=== PATIENT | female | born 1995 | race American Indian/Alaskan Native ===

== ENCOUNTER 2021-10-14 13:35 | Emergency (ER) | payer MEDICAID ==
[2021-10-14] MEDS ORDERED: ONDANSETRON 4 MG/2 ML INJ IV ONE (13:57)
[2021-10-14] MEDS ORDERED: fentaNYL 100 MCG/2 ML INJ IV ONE ×4 (13:57→23:40)
[2021-10-14] MEDS ORDERED: SODIUM CHLORIDE 0.9% 1000 ML 1,000 ML IV ONE ×2 (14:08→16:30)
--- NOTE | 2021-10-14 14:09 | Emergency Department Report ---
HPI - HPI HPI: Room 6 Patient is a 25-year-old female present with chief complaint pelvic pain after attempted . The patient states she went to a preferred women's health clinic today for elective . Patient states 5 minutes into the procedure she began having pain in the left pelvis. She was told by the licensed embalmer supervisor that her cervix was too far to the left. The procedure was eventually abandoned and the patient was sent to the ED by EMS. Patient states she had vaginal bleeding and has only used 1 pad that was placed at the clinic. <IMELDA MANDUJANO - Last Filed: 10/14/21 20:54> <BRYANNA REICH - Last Filed: 10/15/21 01:52> - General Chief Complaint: Abdominal Pain Time Seen by Provider: 10/14/21 13:50 ED Past Medical Hx - Past Medical History Previous Medical History?: No - Surgical History Hx Appendectomy: Yes Additional Surgical History: Craniotomy for benign tumor removal. D&C - Family History Family history: no significant - Social History Smoking Status: Never Smoker Substance Use Type: None (Denies illicit drug use), Alcohol <IMELDA MANDUJANO - Last Filed: 10/14/21 20:54> ED Review of Systems ROS: Stated complaint: ABD PAIN DURING Other details as noted in HPI Constitutional: no symptoms reported Eyes: denies: eye pain ENT: denies: throat pain Respiratory: no symptoms reported Cardiovascular: denies: chest pain Endocrine: no symptoms reported Gastrointestinal: abdominal pain Genitourinary: abnormal menses Musculoskeletal: denies: back pain Neurological: denies: headache <IMELDA MANDUJANO - Last Filed: 10/14/21 20:54> ROS: Stated complaint: ABD PAIN DURING Other details as noted in HPI <BRYANNA REICH - Last Filed: 10/15/21 01:52> Physical Exam - Physical Exam Vital Signs: Vital Signs 10/14/21 13:36 Pulse Rate 89 Blood Pressure 123/64 [Left] O2 Sat by Pulse 97 Oximetry Physical Exam: GENERAL: The patient is well-developed well-nourished female lying on stretcher appearing to be in moderate discomfort. [] HEENT: Normocephalic. Atraumatic. Extraocular motions are intact. Patient has moist mucous membranes. NECK: Supple. Trachea midline CHEST/LUNGS: Clear to auscultation. There is no respiratory distress noted. HEART/CARDIOVASCULAR: Regular. There is no tachycardia. There is no gallop rub or murmur. ABDOMEN: Abdomen is soft, with tenderness to palpation in the suprapubic and left lower quadrant. There is no abdominal distention. SKIN: There is no rash. There is no edema. There is no diaphoresis. NEURO: The patient is awake, alert, and oriented. The patient is cooperative. The patient has no focal neurologic deficits. The patient has normal speech. GCS 15 MUSCULOSKELETAL: There is no evidence of acute injury. PELVIC: Small amount of dark red blood in the vaginal vault <IMELDA MANDUJANO - Last Filed: 10/14/21 20:54> - Physical Exam Vital Signs: Vital Signs 10/14/21 10/14/21 10/14/21 13:36 18:17 23:55 Temperature 98.8 F Pulse Rate 89 90 82 Respiratory 20 16 Rate Blood Pressure 123/64 106/68 114/63 [Left] O2 Sat by Pulse 97 98 99 Oximetry <BRYANNA REICH - Last Filed: 10/15/21 01:52> ED Course Vital Signs 10/14/21 13:36 Pulse Rate 89 Blood Pressure 123/64 [Left] O2 Sat by Pulse 97 Oximetry - Consultations Consultation #1: 10/14/21 19:40 PHOTO OPTICS TECHNICIAN paged-Case discussed with Dr. Rothman-will have Dr. Lomas evaluate patient <IMELDA MANDUJANO - Last Filed: 10/14/21 20:54> Vital Signs 10/14/21 10/14/21 10/14/21 13:36 18:17 23:55 Temperature 98.8 F Pulse Rate 89 90 82 Respiratory 20 16 Rate Blood Pressure 123/64 106/68 114/63 [Left] O2 Sat by Pulse 97 98 99 Oximetry <BRYANNA REICH - Last Filed: 10/15/21 01:52> ED Medical Decision Making - Lab Data Result diagrams: 10/14/21 14:32 10/14/21 14:32 Laboratory Tests 10/14/21 10/14/21 10/14/21 14:32 14:32 14:32 WBC 8.2 RBC 4.05 Hgb 12.4 Hct 36.8 MCV 91 MCH 31 MCHC 34 RDW 12.9 L Plt Count 248 Lymph % (Auto) 6.5 L [place] % (Auto) 6.3 Eos % (Auto) 0.8 Baso % (Auto) 0.4 Lymph # (Auto) 0.5 L [place] # (Auto) 0.5 Eos # (Auto) 0.1 Baso # (Auto) 0.0 Seg Neutrophils % 86.0 H Seg Neutrophils # 7.1 Sodium 135 L Potassium 3.4 L Chloride 104.3 Carbon Dioxide 19 L Anion Gap 15 BUN 7 Creatinine 0.6 Estimated GFR > 60 BUN/Creatinine Ratio 12 Glucose 84 Calcium 9.0 HCG, Quant 15206 H Urine Color Urine Turbidity Urine pH Ur Specific [place] Urine Protein Urine Glucose (UA) Urine Ketones Urine Blood Urine Nitrite Urine Bilirubin Urine Urobilinogen Ur Leukocyte Esterase Urine WBC (Auto) Urine RBC (Auto) U Epithel Cells (Auto) Urine Yeast (Budding) 10/14/21 18:17 WBC RBC Hgb Hct MCV MCH MCHC RDW Plt Count Lymph % (Auto) [place] % (Auto) Eos % (Auto) Baso % (Auto) Lymph # (Auto) [place] # (Auto) Eos # (Auto) Baso # (Auto) Seg Neutrophils % Seg Neutrophils # Sodium Potassium Chloride Carbon Dioxide Anion Gap BUN Creatinine Estimated GFR BUN/Creatinine Ratio Glucose Calcium HCG, Quant Urine Color Red Urine Turbidity Clear Urine pH 6.0 Ur Specific [place] 1.060 H Urine Protein 100 mg/dl Urine Glucose (UA) Neg Urine Ketones 80 Urine Blood Lg Urine Nitrite Neg Urine Bilirubin Neg Urine Urobilinogen 4.0 Ur Leukocyte Esterase Tr Urine WBC (Auto) 46.0 H Urine RBC (Auto) > 182.0 U Epithel Cells (Auto) 4.0 Urine Yeast (Budding) Few - Radiology Data Radiology results: report reviewed (CT abdomen pelvis, pelvic ultrasound), image reviewed (CT abdomen pelvis, pelvic ultrasound) [facility] [address] [place] [address] Ultrasound Report Signed Patient: JORDAN FERREIRA MR#: [id number] : 1995 Acct:[id number] Age/Sex: 25 / F ADM Date: 10/14/21 Loc: ED Attending Dr: Ordering Physician: IMELDA MANDUJANO MD Date of Service: 10/14/21 Procedure(s): US OB <= 14 weeks fetus Accession Number(s): [id number] cc: IMELDA MANDUJANO MD ULTRASOUND OBSTETRIC INDICATION / CLINICAL INFORMATION: Left pelvic pain after attempted elective . TECHNIQUE: Transabdominal. COMPARISON: None available. FINDINGS: GESTATIONAL SAC: Well-defined oval shape and intrauterine in location. YOLK SAC: No significant abnormality. EMBRYO/FETUS: No significant abnormality. - [place]-Rump Length = 0.36 cm = 6.0 weeks.days - Heart Rate, beats per minute (if present) = 151 ADNEXA: No significant abnormality. FREE FLUID: Moderate volume of complex free fluid. ADDITIONAL FINDINGS: Moderate subchorionic hemorrhage. IMPRESSION: 1. Single, living intrauterine with estimated sonographic age of 6.0 weeks.days. 2. Moderate subchorionic hemorrhage. 3. Complex free fluid in the pelvis, likely some degree of hemorrhage within the fluid. Signer Name: Isaac Palacios MD Signed: 10/14/2021 7:06 PM Workstation Name: [id number] Transcribed By: GWENDOLYN Dictated By: Isaac Palacios MD Electronically Authenticated By: Isaac Palacios MD Signed Date/Time: 10/14/211905 DD/ 03 TD/TT: [facility] [address] [place] [address] Cat Scan Report Signed Patient: JORDAN FERREIRA MR#: [id number] : 1995 Acct:[id number] Age/Sex: 25 / F ADM Date: 10/14/21 Loc: ED Attending Dr: Ordering Physician: IMELDA MANDUJANO MD Date of Service: 10/14/21 Procedure(s): CT abdomen pelvis w con Accession Number(s): [id number] cc: IMELDA MANDUJANO MD CT abdomen pelvis w con INDICATION / CLINICAL INFORMATION: Suprapubic LLQt pain p elective attempt. TECHNIQUE: Axial CT images were obtained through the abdomen and pelvis after IV contrast. All CT scans at this location are performed using CT dose reduction for ALARA by means of automated exposure control. COMPARISON: None available. FINDINGS: Lung bases are clear. Liver and gallbladder are unremarkable. Pancreas, spleen, adrenals, kidneys and bladder demonstrate no acute abnormality. No evidence of bowel obstruction or inflammation. No free air. No acute osseous findings. There is nonspecific fluid within the endometrial cavity. Small moderate volume mixed attenuation free fluid in the posterior cul-de-sac and left adnexa with 1.9 x 1.9 cm focus of hyperenhancement within the left adnexa (series 2 image 128). IMPRESSION: 1. 1.9 cm focal structure in the left adnexa with small/moderate mixed at tenuation fluid in the in the left adnexa and posterior cul-de-sac, which may reflect hemorrhage. C onstellation of findings may represent rupture of a hemorrhagic left ovarian cyst. Ruptured left adnexal ectopic cannot be excluded. 2. Nonspecific fluid collection in the endometrial cavity. DDX includes intrauterine gestational sac or pseudogestational sac. 3. Recommend further evaluation with pelvic ultrasound and correlation with beta hCG. Signer Name: Giuliano Morris MD Signed: 10/14/2021 5:22 PM Workstation Name: [id number] Transcribed By: JS Dictated By: GIULIANO MORRIS MD Electronically Authenticated By: GIULIANO MORRIS MD Signed Date/Time: 10/14/211721 DD/ 11 TD/TT: Print Cancel <IMELDA MANDUJANO - Last Filed: 10/14/21 20:54> - Lab Data Result diagrams: 10/14/21 14:32 10/14/21 14:32 - Medical Decision Making spoke with dr Liao over director consumer accepted transfer to [facility] <BRYANNA REICH - Last Filed: 10/15/21 01:52> Critical care attestation.: If time is entered above; I have spent that time in minutes in the direct care of this critically ill patient, excluding procedure time. <IMELDA MANDUJANO - Last Filed: 10/14/21 20:54> Critical care attestation.: If time is entered above; I have spent that time in minutes in the direct care of this critically ill patient, excluding procedure time. <BRYANNA REICH - Last Filed: 10/15/21 01:52> ED Disposition <IMELDA MANDUJANO - Last Filed: 10/14/21 20:54> Is pt being admited?: No Does the pt Need Aspirin: No <BRYANNA REICH - Last Filed: 10/15/21 01:52> Clinical Impression: , Abdominal pain Disposition: 51 HOSPICE/MEDICAL FACILITY Condition: Stable Instructions: Abdominal Pain (ED)
[2021-10-14 15:05] LABS: Basophils % (Auto) 0.4 % (0.0-1.8); Eosinophils # (Auto) 0.1 K/mm3 (0.0-0.4); Eosinophils % (Auto) 0.8 % (0.0-4.3); Hematocrit 36.8 % (30.3-42.9); Hemoglobin 12.4 gm/dl (10.1-14.3); Lymphocytes # (Auto) 0.5 K/mm3 (1.2-5.4); Lymphocytes % (Auto) 6.5 % (13.4-35.0); Mean Corpuscular HGB Conc 34 % (30-34); Mean Corpuscular Volume 91 fl (79-97); Monocytes # (Auto) 0.5 K/mm3 (0.0-0.8); Monocytes % (Auto) 6.3 % (0.0-7.3); Platelet Count 248 K/mm3 (140-440); Red Blood Count 4.05 M/mm3 (3.65-5.03); Red Cell Distribution Width 12.9 % (13.2-15.2)
[2021-10-14 15:34] LABS: Blood Urea Nitrogen 7 mg/dL (7-17); Hemolysis Index 0
[2021-10-14 15:41] LABS: BUN/Creatinine Ratio 12
--- NOTE | 2021-10-14 17:26 | Cat Scan Report ---
CT abdomen pelvis w con INDICATION / CLINICAL INFORMATION: Suprapubic LLQt pain p elective attempt. TECHNIQUE: Axial CT images were obtained through the abdomen and pelvis after IV contrast. All CT sc ans at this location are performed using CT dose reduction for ALARA by means of automated exposure c ontrol. COMPARISON: None available. FINDINGS: Lung bases are clear. Liver and gallbladder are unremarkable. Pancreas, spleen, adrenals, kidneys and bladder demonstrate no acute abnormality. No evidence of bowel obstruction or inflammation. No free air. No acute osseous findings. There is nonspecific fluid within the endometrial cavity. Small moderate volume mixed attenuation sandra e fluid in the posterior cul-de-sac and left adnexa with 1.9 x 1.9 cm focus of hyperenhancement withi n the left adnexa (series 2 image 128). IMPRESSION: 1. 1.9 cm focal structure in the left adnexa with small/moderate mixed attenuation fluid in the in th e left adnexa and posterior cul-de-sac, which may reflect hemorrhage. Constellation of findings may r epresent rupture of a hemorrhagic left ovarian cyst. Ruptured left adnexal ectopic cannot be excluded . 2. Nonspecific fluid collection in the endometrial cavity. DDX includes intrauterine gestational sac or pseudogestational sac. 3. Recommend further evaluation with pelvic ultrasound and correlation with beta hCG. Signer Name: Chris Morris MD Signed: 10/14/2021 5:22 PM Workstation Name: [id number]
--- NOTE | 2021-10-14 19:10 | Ultrasound Report ---
ULTRASOUND OBSTETRIC INDICATION / CLINICAL INFORMATION: Left pelvic pain after attempted elective . TECHNIQUE: Transabdominal. COMPARISON: None available. FINDINGS: GESTATIONAL SAC: Well-defined oval shape and intrauterine in location. YOLK SAC: No significant abnormality. EMBRYO/FETUS: No significant abnormality. - [place]-Rump Length = 0.36 cm = 6.0 weeks.days - Heart Rate, beats per minute (if present) = 151 ADNEXA: No significant abnormality. FREE FLUID: Moderate volume of complex free fluid. ADDITIONAL FINDINGS: Moderate subchorionic hemorrhage. IMPRESSION: 1. Single, living intrauterine with estimated sonographic age of 6.0 weeks.days. 2. Moderate subchorionic hemorrhage. 3. Complex free fluid in the pelvis, likely some degree of hemorrhage within the fluid. Signer Name: Isaac Palacios MD Signed: 10/14/2021 7:06 PM Workstation Name: [id number]
--- NOTE | 2021-10-14 19:10 | Ultrasound Report ---
ULTRASOUND OBSTETRIC INDICATION / CLINICAL INFORMATION: Left pelvic pain after attempted elective . TECHNIQUE: Transabdominal. COMPARISON: None available. FINDINGS: GESTATIONAL SAC: Well-defined oval shape and intrauterine in location. YOLK SAC: No significant abnormality. EMBRYO/FETUS: No significant abnormality. - [place]-Rump Length = 0.36 cm = 6.0 weeks.days - Heart Rate, beats per minute (if present) = 151 ADNEXA: No significant abnormality. FREE FLUID: Moderate volume of complex free fluid. ADDITIONAL FINDINGS: Moderate subchorionic hemorrhage. IMPRESSION: 1. Single, living intrauterine with estimated sonographic age of 6.0 weeks.days. 2. Moderate subchorionic hemorrhage. 3. Complex free fluid in the pelvis, likely some degree of hemorrhage within the fluid. Signer Name: Isaac Palacios MD Signed: 10/14/2021 7:06 PM Workstation Name: [id number]
[2021-10-14 19:19] LABS: Bilirubin,Urine NEG (Negative); Blood,Urine LG (Negative); Color,Urine Red (Yellow)
[2021-10-14 19:20] LABS: RBC,Urine > 182.0 /HPF (0.0-6.0)
[2021-10-14] MEDS ORDERED: PIPERACIL/TAZOBACTA 4.5/NS 100 4.5 GM/100 ML VIAL IV ONE (19:50)
[2021-10-14] MEDS ORDERED: fentaNYL 100 MCG/2 ML INJ ONE (21:05)
--- NOTE | 2021-10-15 01:45 | Consultation ---
History of Present Illness - Reason for Consult Consult date: 10/14/21 Pelvic pain, S/P Failed elective termination of , possible perfora Requesting physician: IMELDA MANDUJANO - History of Present Illness 25-year-old at 6 weeks underwent attempted elective termination of under sonographic guidance at an clinic in [place], [place]. Notes from the provider are supplied by the patient. Those notes were reviewed. Based on that clinical documentation, cervix was abnormal in appearance and patient was in significant pain during the dilation process. No products of conception were obtained during suction. Uterine perforation was suspected. Elective termination of was discontinued. The patient was advised to go to the emergency department for further evaluation management. The patient is traveling from [place], [place] for elective termination of . The patient went to the emergency department at [facility]. CT scan of the abdomen pelvis and pelvic ultrasound were performed. Imaging revealed a single live intrauterine at approximately 6 weeks gestation. However, there was also a complex fluid collection within the pelvis suspicious for hemorrhage. There was no free air in the abdomen. Patient reports pain is on her L>R side. It is sharp and intermittent. She rates the pain as 8-9/10. She reports that she feels hungry. There are no fevers, chills, or night sweats. There is no vaginal bleeding. Past History Past Medical History: No medical history Past Surgical History: appendectomy, , Other (Brain surgery for removal of a benign tumor) Social history: single Family history: no significant family history Medications and Allergies Allergies Allergy/AdvReac Type Severity Reaction Status Date / Time morphine Allergy Unknown Verified 10/14/21 13:41 Review of Systems All systems: negative Exam - Constitutional Vitals: Temp Pulse Resp BP Pulse Ox 98.8 F 82 16 114/63 99 10/14/21 18:17 10/14/21 23:55 10/14/21 23:55 10/14/21 23:55 10/14/21 23:55 General appearance: Present: mild distress - EENT Eyes: Present: PERRL, EOM intact ENT: hearing intact - Neck Neck: Present: normal ROM - Respiratory Respiratory effort: normal Respiratory: bilateral: CTA - Extremities Extremities: No edema - Abdominal General gastrointestinal: Present: tender Localized gastrointestinal: tender: RLQ, LLQ, guarding: LLQ Female genitourinary: Present: normal - Integumentary Integumentary: Present: clear, warm, dry - Musculoskeletal Musculoskeletal: strength equal bilaterally - Psychiatric Psychiatric: appropriate mood/affect, intact judgment & insight - Neurologic Neurologic: CNII-XII intact Results - Labs CBC & Chem 7: 10/14/21 14:32 10/14/21 14:32 Labs: Abnormal lab results 10/14/21 10/14/21 10/14/21 Range/Units 14:32 14:32 14:32 RDW 12.9 L (13.2-15.2) % Lymph % (Auto) 6.5 L (13.4-35.0) % Lymph # (Auto) 0.5 L (1.2-5.4) K/mm3 Seg Neutrophils % 86.0 H (40.0-70.0) % Sodium 135 L (137-145) mmol/L Potassium 3.4 L (3.6-5.0) mmol/L Carbon Dioxide 19 L (22-30) mmol/L HCG, Quant 05344 H (0-4) mIU/mL Ur Specific [place] (1.003-1.030) Urine WBC (Auto) (0.0-6.0) /HPF 10/14/21 Range/Units 18:17 RDW (13.2-15.2) % Lymph % (Auto) (13.4-35.0) % Lymph # (Auto) (1.2-5.4) K/mm3 Seg Neutrophils % (40.0-70.0) % Sodium (137-145) mmol/L Potassium (3.6-5.0) mmol/L Carbon Dioxide (22-30) mmol/L HCG, Quant (0-4) mIU/mL Ur Specific [place] 1.060 H (1.003-1.030) Urine WBC (Auto) 46.0 H (0.0-6.0) /HPF - Imaging and Cardiology CT scan - abdomen: report reviewed US - abdomen: report reviewed Assessment and Plan - Patient Problems (1) with perforation of uterus Current Visit: Yes Status: Acute Plan to address problem: Clinically, I suspect uterine perforation. Complex fluid in the pelvis also supports the suspicion for uterine perforation. Direct video laparoscopy would confirm the diagnosis. However, pursuant to peer-reviewed her literature: - If unstable or worsening clinical status is noted, transfer to tertiary-level facility for further management. - Any woman with a known uterine perforation with evidence of bowel injury should be transferred to tertiary-level facility for further management. Furthermore, patient still desires elective termination of at this time. She also wishes to retain her future childbearing. As such, I phoned the [facility] transfer line to transfer this patient's care to Dr. Nataliia Landeros of the [facility] at [facility]. The [employer] physician on-call covering the [facility] service was unable to be reached by the [facility] transfer line nurse after several hours secondary to patient care acuity. As such, I recommend initiating in ED-to-ED transfer to [facility] as [facility] does not have a Family Planning service for elective terminations of and management of their associated complications. This was relayed to Dr. Monteiro.
[2021-10-15] MEDS ORDERED: HYDROmorphone 1 MG/1 ML INJ IV ONE ×3 (02:09→14:11)
[2021-10-15] MEDS ORDERED: HYDROmorphone 1 MG/1 ML INJ ONE (04:51)
--- NOTE | 2021-10-15 09:16 | Emergency Department Report ---
Blank Doc - Documentation Documentation: Chart reviewed since patient is still in ED pending transfer 25-year-old female here for 19 hours currently awaiting bed assignment at [facility] for transfer for intrauterine and probable uterine rupture status post elective procedure. Patient is excepted and as per Pension Agent Shira patient is still awaiting bed assignment from [facility]. I requested nurse update vital signs. Patient does not have any signs of hypotension or tachycardia. She now has return of left sided abdominal pain with some pain now on the right lower abdomen. Patient appears uncomfortable during my evaluation. She is requesting additional pain medicine. Dilaudid 0.5 mg ordered. At this time vital signs are stable and do not suggest significant volume loss/bleeding. I have ordered a type and screen and repeat H&H since patient is still pending transfer for definitive management.
[2021-10-15 09:39] LABS: Hematocrit 33.7 % (30.3-42.9); Hemoglobin 11.2 gm/dl (10.1-14.3)
[2021-10-15] MEDS: PIPERACIL/TAZOBACTA 4.5/NS 100 4.5 GM/100 ML VIAL IV SCH ×2 (12:45→21:35)
[2021-10-15 21:57] VITALS: BP 109/59
== END 2021-10-15 22:15 | disposition hospice, inpatient (51) ==
LOC: ED 13:35
DX: O03.9 Complete or unspecified spontaneous abortion without complication (principal); R10.2 Pelvic and perineal pain
CPT/HCPCS: 36415; 74177; 76801; 76817; 80048; 81001; 84702; 85014; 85018; 85025; 86850; 86900; 86901; 87086; 96361; 96365; 96367; 96375; 96376; 99285; J1170; J2405; J2543; J3010; J7030; Q9967